=== PATIENT | female | born 1930 | race Caucasian/White ===

== ENCOUNTER → 2016-11-08 | Outpatient (CLI) | payer MEDICARE, BC ==
[~2016-11-08] MED LIST: ASCORBIC ACID500 MG PO; ASPIR-LOW81 MG PO; ASPIRIN (CHILDR81 MG PO; B COMPLETE1 EACH PO; BIOTIN1000 MCG PO; CALCIUM CARBON600 MG PO; COZAAR25 MG PO; CYANOCOBAL1000 MCG/1 IM; FEOSOL325 MG PO; FLEXERIL10 MG PO; HAIR, SKIN & N1 EACH PO; K-TAB 10MEQ10 MEQ PO; K-TAB ER20 MEQ PO; LASIX40 MG PO; LEG CRAMP RELIEF PO; LEVOTHROID (SY88 MCG PO; LEVOTHROID(SYN75 MCG PO; LISINOPRIL2.5 MG PO; MELATONIN1 MG PO; MELATONIN5 M2 PO; MELATONIN5 MG PO; MERCAPTOPURINE50 MG PO; MIRAPEX ER1.5 MG PO; MIRAPEX0.25 MG PO; MIRAPEX1 MG PO; MIRAPEX1.5 MG PO; NORCO 10-325 T1 EACH PO; NORCO 5-325 MG1 TAB PO; NORCO 5-325 TA1 EACH PO; OSCAL + D500 MG PO; OSCAL500 MG PO; PAMELOR10 MG PO; PAMELOR25 MG PO; PRILOSEC20 M1 PO; PRILOSEC20 MG PO; RESTLESS LEGS PO; SINGULAIR10 MG PO; SODIUM BICAR325 MG PO; SODIUM BICARBO650 MG PO; STOOL SOFT-STI1 EACH PO; TOPROL XL100 MG PO; TRIACET 0.1 CRE15 GM TOP; TRIAMCINOLONE 015 G1 TOP; VITAMIN C1000 MG PO; VITAMIN D-32000 UNI1 PO; VITAMIN D35000 UNI1 PO; ZADITOR5 ML OPHTH; ZYRTEC10 MG PO; [UNRECOGNIZED DRUG - OTHER] TOP
--- NOTE | ~2016-11-08 | PUL ---
PATIENT'S NAME: SANGITA ORTEGA [facility] AGE: 86 Y [address] ROOM: [place] [address] LOCATION: [facility] ADMIT DATE: 11/08/2016 Pulmonary DISCHARGE DATE: FAMILY PHYSICIAN: Alexandre Bernal MD ATTENDING PHYSICIAN: Tawanna Patricia NAME OF PROCEDURE: Sleep Study DATE OF PROCEDURE: 11/08/16 TECH: JIHAN Acosta TEST #: [facility] [place]# [id number] MEDICAL HISTORY: The patient is an 86-year-old woman with hypersomnolence. SLEEP STAGE SUMMARY: The patient was studied for 423 minutes of which she slept 354 minutes. She fell asleep in a minute and slept for 84% of the night. Sleep architecture revealed a decline in slow wave sleep. RESPIRATORY SUMMARY: There were 17 obstructive apneas and 61 obstructive hypopneas for an apnea/hypopnea index mildly elevated at 13.2 events per hour. Oxygen saturations ranged from 74-97%. Saturations were below 88% for 17 minutes. The majority of events occurred too late in the study to allow for initiation of CPAP. EKG SUMMARY: Average heart rate during sleep 72 beats per minute. LIMB MOVEMENT SUMMARY: No clinically relevant periodic limb movements were noted. SUMMARY: Mild obstructive sleep apnea predominantly during rapid eye movement sleep. PLAN: Patient will receive results from the ordering provider. MD PUMA RIDER/ /[id number] dtt: 11/19/16 1303 , Sudheer Mcfarland dtd: 11/11/16 1633
== END | disposition disaster alternative care site (69) ==
LOC: GSLP 20:21
DX: G47.19 Other hypersomnia (principal); G47.33 Obstructive sleep apnea (adult) (pediatric); I10 Essential (primary) hypertension; R09.02 Hypoxemia; R06.83 Snoring; R55 Syncope and collapse